=== PATIENT | male | born 1995 | race African-American/Black ===

== ENCOUNTER → 2024-02-29 18:47 | Outpatient (CLI) | payer BC, SELFPAY ==
--- NOTE | ~2024-02-29 | XR_ITS ---
EXAMINATION: XR ankle RT 2V DATE: 02/29/2024 19:11 INDICATION: Achilles tendinitis. TECHNIQUE: 2 views of right ankle were obtained. COMPARISON: None. FINDINGS: Alignment is normal. No fracture. 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 There is mild midfoot osteoarthritis. There are enthesophytes at the posterior and pl [place] aspects of calcaneal tuberosity. IMPRESSION: 1. Mild midfoot osteoarthritis. Reviewed, dictated and finalized at location E.
== END ==
PROVIDERS: PCP Emergency Medicine; Visit Provider Emergency Medicine
DX: M76.61 Achilles tendinitis, right leg (principal); M19.071 Primary osteoarthritis, right ankle and foot
CPT/HCPCS: 73600